=== PATIENT | female | born 2000 | race American Indian/Alaskan Native ===

== ENCOUNTER 2020-05-15 09:19 | Emergency (ER) | payer OTHER ==
[2020-05-15 09:32] VITALS: BP 144/76
--- NOTE | 2020-05-15 09:59 | Emergency Department Report ---
ED Female HPI - General Chief complaint: Abdominal Pain Stated complaint: 16 WKS LOWER STOMACH PAIN Time Seen by Provider: 05/15/20 09:59 Source: patient Mode of arrival: Ambulatory Limitations: No Limitations - History of Present Illness Initial comments: 20-year-old female with no significant past medical history presents to the ER today complaint of sharp intermittent lower abdominal pain. She states that she woke up with the pain this morning. She states that she has had normal regular white discharge, denies any vaginal bleeding or UTI symptoms. She denies any fever or chills. She states that her last menstrual cycle was January 20. She last had an ultrasound at 12 weeks which showed a normal IUP. She is G2, P0 Ab1. Her [facility]. She states that when the pain started this morning she called her [facility] [employer] [facility] and it was recommended that she come to the ER for evaluation. She states that she is concerned because she has had a miscarriage in the past. MD Complaint: pelvic pain, other (lower abd pain) - Related Data Allergies Allergy/AdvReac Type Severity Reaction Status Date / Time FOOD ALLERGIES Allergy Unknown Uncoded 05/15/20 09:28 ED Review of Systems ROS: Stated complaint: 16 WKS LOWER STOMACH PAIN Other details as noted in HPI Comment: All other systems reviewed and negative Constitutional: denies: chills, fever Respiratory: denies: cough, shortness of breath, wheezing Cardiovascular: denies: chest pain, palpitations Gastrointestinal: abdominal pain. denies: nausea, vomiting, diarrhea, constipation, hematemesis, melena, hematochezia Genitourinary: discharge (Her normal regular discharge). denies: urgency, dysuria, frequency, hematuria Skin: denies: rash, lesions Neurological: denies: headache, weakness, paresthesias Psychiatric: denies: anxiety, depression ED Past Medical Hx - Past Medical History Previous Medical History?: Yes Additional medical history: MISCARRIAGE - Surgical History Past Surgical History?: No - Social History Smoking Status: Never Smoker Substance Use Type: None ED Physical Exam - General Limitations: No Limitations General appearance: alert, in no apparent distress - Head Head exam: Present: atraumatic, normal inspection - Eye Eye exam: Present: normal appearance, PERRL, EOMI Pupils: Present: normal accommodation - Respiratory Respiratory exam: Present: normal lung sounds bilaterally. Absent: respiratory distress - Cardiovascular Cardiovascular Exam: Present: regular rate, normal rhythm, normal heart sounds - GI/Abdominal GI/Abdominal exam: Present: soft, tenderness (Patient has mild tenderness to palpation in the suprapubic and right lower quadrant without guarding or rebound. No abdominal rigidity or distention noted.). Absent: distended - External exam: Present: normal external exam Speculum exam: Present: vaginal discharge (Mild white-yellowish discharge). Absent: erythema, vaginal bleeding, foreign body Bi-manual exam: Present: adnexal tenderness (Mild bilaterally). Absent: cervical motion tendernes, adnexal mass, uterine tenderness - Back Exam Back exam: Present: full ROM - Neurological Exam Neurological exam: Present: alert, oriented X3, CN II-XII intact, normal gait - Psychiatric Psychiatric exam: Present: normal affect, normal mood - Skin Skin exam: Present: intact ED Course Vital Signs 05/15/20 05/15/20 09:29 11:21 Temperature 98.1 F Pulse Rate 94 H Respiratory 19 18 Rate Blood Pressure 144/76 O2 Sat by Pulse 99 Oximetry ED Medical Decision Making - Lab Data Result diagrams: 05/15/20 10:09 05/15/20 10:09 - Radiology Data Findings [facility] [address] [place] [address] Ultrasound Report Signed Patient: VALE DAVILA MR#: [id number] : 2000 Acct:[id number] Age/Sex: 20 / F ADM Date: 05/15/20 Loc: ED Attending Dr: Ordering Physician: IGNACIO COLEMAN Date of Service: 05/15/20 Procedure(s): US OB >= 14 weeks Fetus Accession Number(s): [id number] cc: IGNACIO COLEMAN ULTRASOUND OBSTETRIC REASON FOR EXAM: lower abd pain; 16 weeks preg TECHNIQUE: Transabdominal and transvaginal ultrasound was performed to evaluate a second trimester . COMPARISON: None available. FINDINGS: FINDINGS: Single live intrauterine in cephalic presentation. Posterior placenta, which is free of the os. Amniotic fluid volume is adequate. MEASUREMENTS: - Biparietal Diameter = 2.6 cm = 14 weeks 4 days - Head Circumference = 9.5 cm = 14 weeks 2 days - Abdominal Circumference = 8.3 cm = 14 weeks 5 days - Femur Length = 1.2 cm = 13 weeks 4 days - Heart Rate (beats per minute): 154 No free fluid in the cul-de-sac. IMPRESSION: Single live intrauterine with gestational age of 14 weeks 2 days by ultrasound. Recommend clinical screening and ultrasound follow-up to screen for anomalies. Signer Name: Anne-Marie Avery MD Signed: 05/15/2020 11:38 AM Workstation Name: [id number] Transcribed By: JOSELINE Dictated By: ANNE-MARIE AVERY MD Electronically Authenticated By: ANNE-MARIE AVERY MD Signed Date/Time: 05/15/20 1138 - Medical Decision Making 1259: Upon reviewing ultrasound results and lab results with patient, she then started to request STD testing. Patient states that she had recent sexual intercourse with a janet who she is been seen off and on. This is not her current child's father. She states that during sexual intercourse the condom ruptured and pain started right after. She is concerned that the pain could be related to an STD. Recommend to patient that she follows up with [employer] for STD testing, but she states that she is scheduled to see them in a month and they will not see her sooner. She also states that the Tylenol did not help with her pain. Repeat abdominal exam showed mild tenderness in the right lower quadrant, but no guarding or rebound and no McBurney's point tenderness, distention, or rigidity. Pelvic exam was done, showed tenderness to the adnexa bilaterally without any mass. No bleeding. Cervical os closed. No CMT. Mild white-yellowish discharge. Wet prep/GC pending. IM Rocephin and Zithromax ordered. 1431 Wet prep unremarkable. GC pending. Reviewed all results with patient including her wet prep. Work-up today unremarkable. No further work-up indicated at this time. Recommend that she follow-up with her [employer]. Continue taking Tylenol as needed for pain. Return to the ER if anything worsens or changes. Critical care attestation.: If time is entered above; I have spent that time in minutes in the direct care of this critically ill patient, excluding procedure time. ED Disposition Clinical Impression: Pelvic pain during , Concern about STD in female without diagnosis Disposition: - TO HOME OR SELFCARE Is pt being admited?: No Does the pt Need Aspirin: No Condition: Stable Instructions: Pelvic Pain, Female, [id number], and Sexually Transmitted Infections, Abdominal Pain (ED) Additional Instructions: I recommend that you take Tylenol as needed to help with the pain. Follow-up with the [employer] in the next 1 to 2 days. Return to the ER if your symptoms changes or worsens in any way. Referrals: PRIMARY CARE, [Primary Care Provider] - 3-5 Days Time of Disposition: 12:34
[2020-05-15] MEDS ORDERED: ACETAMINOPHEN 325 MG TAB PO ONE (10:00)
[2020-05-15 10:35] LABS: Basophils % (Auto) 0.2 % (0.0-1.8); Eosinophils # (Auto) 0.1 K/mm3 (0.0-0.4); Eosinophils % (Auto) 1.4 % (0.0-4.3); Hematocrit 37.4 % (30.3-42.9); Hemoglobin 12.5 gm/dl (10.1-14.3); Lymphocytes # (Auto) 2.5 K/mm3 (1.2-5.4); Mean Corpuscular HGB Conc 33 % (30-34); Mean Corpuscular Volume 90 fl (79-97); Monocytes # (Auto) 0.5 K/mm3 (0.0-0.8); Monocytes % (Auto) 5.3 % (0.0-7.3); Platelet Count 412 K/mm3 (140-440); Red Blood Count 4.15 M/mm3 (3.65-5.03); Red Cell Distribution Width 13.3 % (13.2-15.2)
[2020-05-15 10:40] LABS: Alanine Aminotransferase 11 units/L (7-56); Albumin 3.9 g/dL (3.9-5); Blood Urea Nitrogen 5 mg/dL (7-17); Calcium 9.3 mg/dL (8.4-10.2); Hemolysis Index 4
[2020-05-15 10:41] LABS: BUN/Creatinine Ratio 13
[2020-05-15 10:45] LABS: Amorphous Crystals,Urine Few; Bilirubin,Urine NEG (Negative); Blood,Urine NEG (Negative); Color,Urine Yellow (Yellow); Mucus,Urine FEW /HPF; Protein,Urine <15 mg/dL mg/dL (Negative); Urobilinogen,Urine < 2.0 mg/dL (<2.0); WBC,Urine < 1.0 /HPF (0.0-6.0)
--- NOTE | 2020-05-15 11:43 | Ultrasound Report ---
ULTRASOUND OBSTETRIC REASON FOR EXAM: lower abd pain; 16 weeks preg TECHNIQUE: Transabdominal and transvaginal ultrasound was performed to evaluate a second trimester pr egnancy. COMPARISON: None available. FINDINGS: FINDINGS: Single live intrauterine in cephalic presentation. Posterior placenta, which is free of the os. Amniotic fluid volume is adequate. MEASUREMENTS: - Biparietal Diameter = 2.6 cm = 14 weeks 4 days - Head Circumference = 9.5 cm = 14 weeks 2 days - Abdominal Circumference = 8.3 cm = 14 weeks 5 days - Femur Length = 1.2 cm = 13 weeks 4 days - Heart Rate (beats per minute): 154 No free fluid in the cul-de-sac. IMPRESSION: Single live intrauterine with gestational age of 14 weeks 2 days by ultrasound. Recommend c linical screening and ultrasound follow-up to screen for anomalies. Signer Name: Ke Avery MD Signed: 05/15/2020 11:38 AM Workstation Name: [id number]
[2020-05-15] MEDS ORDERED: LIDOCAINE-MPF (1%) 10 MG/1 ML VIAL 5 ML INFILTRATI ONE (12:42)
[2020-05-15] MEDS ORDERED: AZITHROMYCIN 250 MG TAB PO ONE (12:42)
== END 2020-05-15 14:54 | disposition home or self-care (01) ==
LOC: ED 09:19
DX: O26.892 Other specified pregnancy related conditions, second trimester (principal); R10.2 Pelvic and perineal pain; Z3A.16 16 weeks gestation of pregnancy; Z91.018 Allergy to other foods
CPT/HCPCS: 36415; 76805; 80053; 81001; 84702; 85025; 87210; 87591; 96372; 99284; J0696

== ENCOUNTER 2020-08-15 22:36 | Outpatient (CLI) | payer OTHER ==
[2020-08-15 23:26] LABS: Bilirubin,Urine NEG (Negative); Blood,Urine NEG (Negative); Color,Urine Yellow (Yellow); Mucus,Urine FEW /HPF; Urobilinogen,Urine < 2.0 mg/dL (<2.0)
[2020-08-15] MEDS ORDERED: LACTATED RINGERS 1,000 ML IV ONE (23:31)
[2020-08-15] MEDS ORDERED: LACTATED RINGERS 1,000 ML ONE (23:42)
[2020-08-15] MEDS ORDERED: ceFAZolin/Water 2 GM/20 ML 2 GM/20 ML SYRINGE IV ONE (23:44)
[2020-08-15] MEDS ORDERED: LACTATED RINGERS 1000 ML IV SOLN ONE (23:46)
[2020-08-16 00:18] VITALS: BP 148/79
== END 2020-08-16 00:44 | disposition home or self-care (01) ==
LOC: TRG 22:36 → APU 22:46 → TRG 08-16 00:44
PROVIDERS: ATTEND Obstetrics & Gynecology
DX: O26.892 Other specified pregnancy related conditions, second trimester (principal); M54.9 Dorsalgia, unspecified; R10.9 Unspecified abdominal pain; Z3A.27 27 weeks gestation of pregnancy
CPT/HCPCS: 59025; 81001; 96361; 96374; J0690; J7120; 96360; 96365

== ENCOUNTER 2020-09-01 13:59 | Outpatient (CLI) | payer OTHER ==
[2020-09-01] MEDS ORDERED: LACTATED RINGERS 1,000 ML IV SCH (15:30)
[2020-09-01 15:33] VITALS: BP 131/60
[2020-09-01] MEDS ORDERED: ACETAMINOPHEN 325 MG TAB PO ONE (16:27)
[2020-09-01] MEDS ORDERED: ONDANSETRON 4 MG/2 ML INJ IV ONE (16:27)
--- NOTE | 2020-09-01 18:19 | Ultrasound Report ---
OB ultrasound biophysical profile INDICATION: Decreased movement FINDINGS: breathing movements score 2 movement score 2 posture and tone score 2 Qualitative amniotic fluid score 2 FLORENTINO 6.2 cm. IMPRESSION: Normal biophysical profile. heart rate 159 bpm. Signer Name: Karthik Perla MD Signed: 09/01/2020 6:14 PM Workstation Name: [email or web address]
== END 2020-09-01 16:15 | disposition home or self-care (01) ==
LOC: TRG 13:59 → APU 14:02 → TRG 16:15
DX: O36.8130 Decreased fetal movements, third trimester, not applicable or unspecified (principal); O21.2 Late vomiting of pregnancy; O26.893 Other specified pregnancy related conditions, third trimester; R51.9 Headache, unspecified; Z3A.30 30 weeks gestation of pregnancy
CPT/HCPCS: 76819; 96361; 96365; J2405; J7120

== ENCOUNTER 2020-09-12 22:11 | Outpatient (CLI) | payer OTHER ==
[2020-09-12] MEDS ORDERED: LACTATED RINGERS 500 ML IV ONE (22:25)
[2020-09-12 22:34] VITALS: BP 136/68
[2020-09-12 22:49] LABS: Bacteria,Urine 1+ /HPF (Negative); Bilirubin,Urine NEG (Negative); Blood,Urine NEG (Negative); Color,Urine Yellow (Yellow); Mucus,Urine FEW /HPF; Protein,Urine <15 mg/dL mg/dL (Negative)
[2020-09-12] MEDS: LACTATED RINGERS 1000 ML IV SOLN IV SCH (23:25)
[2020-09-13] MEDS ORDERED: ACETAMINOPHEN 500 MG TAB PO ONE (00:04)
--- NOTE | 2020-09-13 00:20 | Ultrasound Report ---
BIOPHYSICAL PROFILE heart rate was measured at 142 bpm. breathing movements: 2/2 movements: 2/2 posture and tone tone: 2/2 Qualitative amniotic fluid volume: 2/2 Total score: 8/8, within normal limits Signer Name: Casper Pace MD Signed: 09/13/2020 12:16 AM Workstation Name: [email or web address]
[2020-09-13] MEDS: LACTATED RINGERS 1000 ML IV SOLN IV SCH (00:30)
[2020-09-13] MEDS ORDERED: ACETAMINOPHEN W/CODEINE 300-30 MG TAB PO ONE (01:00)
== END 2020-09-13 01:18 | disposition home or self-care (01) ==
LOC: TRG 22:11 → APU 22:18 → TRG 09-13 01:18
PROVIDERS: ATTEND Obstetrics & Gynecology
DX: O26.893 Other specified pregnancy related conditions, third trimester (principal); R10.30 Lower abdominal pain, unspecified; R10.2 Pelvic and perineal pain; M54.9 Dorsalgia, unspecified; Z3A.31 31 weeks gestation of pregnancy
CPT/HCPCS: 59025; 76819; 81001; 87086; 96361; 96365; J0690; J7120; 96360

== ENCOUNTER 2020-09-25 13:02 | Outpatient (CLI) | payer OTHER ==
[2020-09-25] MEDS ORDERED: LACTATED RINGERS 1,000 ML IV ONE (13:25)
[2020-09-25 14:47] VITALS: BP 142/71
--- NOTE | 2020-09-25 15:00 | Ultrasound Report ---
US OB BPP WO NON-STRESS US OB LIMITED INDICATION / CLINICAL INFORMATION: well being. COMPARISON: 09/12/2020 FINDINGS: breathing movement = 2 Gross body movement = 2 tone = 2 Qualitative amniotic fluid volume = 0 Total biophysical score = 11/27 Amniotic fluid index is 6.6 cm. (Previously 6.2 cm) Presentation is Cephalic. heart rate is 145 beats per minute. IMPRESSION: biophysical profile = 09/27 Amniotic fluid index is mildly decreased at 6.6 cm (previously 6.2 cm) Signer Name: Royal Fuentes MD Signed: 09/25/2020 2:56 PM Workstation Name: [id number]
== END 2020-09-25 14:54 | disposition home or self-care (01) ==
LOC: TRG 13:02 → APU 13:06 → TRG 14:54
PROVIDERS: ATTEND Obstetrics & Gynecology
DX: O36.8130 Decreased fetal movements, third trimester, not applicable or unspecified (principal); Z3A.33 33 weeks gestation of pregnancy
CPT/HCPCS: 59025; 76815; 76819

== ENCOUNTER 2020-10-13 00:11 | Outpatient (CLI) | payer OTHER ==
[2020-10-13 01:06] LABS: Mucus,Urine FEW /HPF
[2020-10-13 01:29] LABS: Color,Urine Yellow (Yellow)
[2020-10-13 01:30] LABS: Ictotest,Urine Negative (Negative); Protein,Urine <15 mg/dL mg/dL (Negative); Urobilinogen,Urine < 2.0 mg/dL (<2.0)
--- NOTE | 2020-10-13 02:25 | Ultrasound Report ---
Biophysical profile INDICATION: well-being FINDINGS: Biophysical profile total score 8 out of 8. heart rate 156. IMPRESSION: Normal biophysical profile Limited OB ultrasound INDICATION: well-being FINDINGS: FLORNETINO measures 11.2 cm. Live intrauterine in cephalic position. heart rate is 1 56 bpm. IMPRESSION: Live intrauterine Signer Name: Karthik Perla MD Signed: 10/13/2020 2:20 AM Workstation Name: [email or web address]
--- NOTE | 2020-10-13 02:25 | Ultrasound Report ---
Biophysical profile INDICATION: well-being FINDINGS: Biophysical profile total score 8 out of 8. heart rate 156. IMPRESSION: Normal biophysical profile Limited OB ultrasound INDICATION: well-being FINDINGS: FLORENTINO measures 11.2 cm. Live intrauterine in cephalic position. heart rate is 1 56 bpm. IMPRESSION: Live intrauterine Signer Name: Karthik Perla MD Signed: 10/13/2020 2:20 AM Workstation Name: [id number]
== END 2020-10-13 02:00 | disposition home or self-care (01) ==
LOC: TRG 00:11 → APU 00:39 → TRG 02:00
PROVIDERS: ATTEND Obstetrics & Gynecology
DX: Z34.93 Encounter for supervision of normal pregnancy, unspecified, third trimester (principal); Z3A.36 36 weeks gestation of pregnancy
CPT/HCPCS: 76815; 76819; 81001

== ENCOUNTER 2020-10-18 16:19 | Outpatient (CLI) | payer OTHER ==
[2020-10-18] MEDS ORDERED: LACTATED RINGERS 1,000 ML IV ONE (16:55)
[2020-10-18 17:17] LABS: Bacteria,Urine 2+ /HPF (Negative); Bilirubin,Urine NEG (Negative); Blood,Urine NEG (Negative); Color,Urine Yellow (Yellow); Protein,Urine <15 mg/dL mg/dL (Negative); Urobilinogen,Urine < 2.0 mg/dL (<2.0)
[2020-10-18 17:52] LABS: Hematocrit 34.3 % (30.3-42.9); Hemoglobin 11.4 gm/dl (10.1-14.3); Mean Corpuscular HGB Conc 33 % (30-34); Mean Corpuscular Volume 82 fl (79-97); Platelet Count 489 K/mm3 (140-440); Red Blood Count 4.21 M/mm3 (3.65-5.03); Red Cell Distribution Width 15.5 % (13.2-15.2)
[2020-10-18 18:18] LABS: Alanine Aminotransferase 12 units/L (7-56); Uric Acid 3.9 mg/dL (3.5-7.6)
[2020-10-18 19:23] VITALS: BP 138/78
--- NOTE | 2020-10-18 20:03 | Ultrasound Report ---
US OB BPP wo non-stress, US OB limited INDICATION / CLINICAL INFORMATION: decel in office. COMPARISON: 10/13/2020 FINDINGS: Single live fetus is seen in cephalic presentation. FLORENTINO is normal at 9.0. heart rate is 141. BP P is 6/8 with a 0 for breathing movements IMPRESSION: Single live fetus in cephalic presentation with heart rate 141. BPP is 6/8 with a 0 for b reathing movements Signer Name: Jalen Doan MD FACR Signed: 10/18/2020 7:58 PM Workstation Name: [id number]
== END 2020-10-18 19:58 | disposition home or self-care (01) ==
LOC: TRG 16:19 → APU 16:21 → TRG 19:58
DX: O36.8130 Decreased fetal movements, third trimester, not applicable or unspecified (principal); O10.913 Unspecified pre-existing hypertension complicating pregnancy, third trimester; O47.1 False labor at or after 37 completed weeks of gestation; Z3A.37 37 weeks gestation of pregnancy
CPT/HCPCS: 36415; 59025; 76815; 76819; 81001; 82565; 83615; 84450; 84460; 84550; 85027; 86850; 86900; 86901; 96360

== ENCOUNTER 2020-10-24 01:52 | Inpatient (IN) | payer OTHER ==
[2020-10-24] MEDS ORDERED: ONDANSETRON 4 MG ODT TAB PO ONE (02:36)
[2020-10-24 03:00] LABS: Hematocrit 33.2 % (30.3-42.9); Hemoglobin 10.8 gm/dl (10.1-14.3); Mean Corpuscular HGB Conc 33 % (30-34); Mean Corpuscular Volume 82 fl (79-97); Platelet Count 509 K/mm3 (140-440); Red Blood Count 4.07 M/mm3 (3.65-5.03); Red Cell Distribution Width 15.8 % (13.2-15.2)
[2020-10-24 03:07] LABS: Bacteria,Urine 1+ /HPF (Negative); Bilirubin,Urine NEG (Negative); Blood,Urine NEG (Negative); Color,Urine Straw (Yellow); Protein,Urine <15 mg/dL mg/dL (Negative); Urobilinogen,Urine < 2.0 mg/dL (<2.0)
[2020-10-24 03:22] LABS: Uric Acid 4.3 mg/dL (3.5-7.6)
[2020-10-24 03:23] LABS: Alanine Aminotransferase 11 units/L (7-56); Albumin 3.6 g/dL (3.9-5); Blood Urea Nitrogen 8 mg/dL (7-17); Calcium 9.5 mg/dL (8.4-10.2); Hemolysis Index 2
[2020-10-24 03:36] LABS: BUN/Creatinine Ratio 16
[2020-10-24] MEDS ORDERED: OXYTOCIN 10 UNIT/1 ML INJ IM PRN (04:11)
[2020-10-24] MEDS ORDERED: DINOPROSTONE 10 MG VAG SUPP VG ONE (04:11)
[2020-10-24] MEDS ORDERED: TERBUTALINE 1 MG/1 ML INJ SUB-Q PRN (04:11)
[2020-10-24] MEDS ORDERED: LIDOCAINE (2%) 20 MG/1 ML VIAL 20 ML MDV INFILTRATI ONE (04:11)
[2020-10-24] MEDS ORDERED: CARBOPROST TROMETHAMINE 250 MCG/1 ML INJ IM PRN (04:11)
[2020-10-24] MEDS ORDERED: fentaNYL 100 MCG/2 ML INJ IV PRN (04:11)
[2020-10-24] MEDS ORDERED: LOPERAMIDE 2 MG CAP PO PRN (04:11)
[2020-10-24] MEDS ORDERED: MINERAL OIL 30 ML ORAL LIQD PO PRN (04:11)
[2020-10-24] MEDS ORDERED: miSOPROStol 200 MCG TAB PR PRN (04:11)
[2020-10-24] MEDS ORDERED: ePHEDrine SULFATE 50 MG/1 ML INJ IV PRN (04:11)
--- NOTE | 2020-10-24 04:18 | History and Physical Report ---
History of Present Illness Date of examination: 10/24/20 Date of admission: 10/24/20 Chief complaint: Elevated blood pressure. History of present illness: 20 year old presents to L&D with elevated blood pressures. Patient received care at [facility] and records are available. LMP 01/21/2020. EDC 11/08/2020. significant for the following: obesity, gestational hypertension (on LDA). labs are as follows: A+, antibody screen negative, rubella immune, hepatitis B surface antigen negative, RPR nonreactive, HIV negative, gonorrhea negative, chlamydia negative, trichomonas negative, 1 hour sugar test 97, GBS negative, OSB negative. Past History Past Medical History: other (obesity) Past Surgical History: no surgical history [facility] [facility] History: abnormal PAP smear (history of ASCUS pap, negative HPV). denies: chlamydia, gonorrhea, hepatitis B, hepatitis C, herpes, HIV, syphilis, trichomonas Family/Genetic History: none Social history: lives with family, full code. denies: smoking, alcohol abuse, prescription drug abuse, IV drug use - Obstetrical History Expected Date of Delivery: 11/08/20 Actual Gestation: 37 Week(s) 6 Day(s) : 3 Para: 0 Hx # Term Pregnancies: 0 Number of Pregnancies: 0 Spontaneous Abortions: 1 Induced : 1 Number of Living Children: 0 Medications and Allergies Allergies Allergy/AdvReac Type Severity Reaction Status Date / Time FOOD ALLERGIES Allergy Unknown Uncoded 05/15/20 09:28 Home Medications Medication Instructions Recorded Confirmed Last Taken Type Nitrofurantoin [place]/M-Cryst 100 mg PO Q12HR 7 Days #14 capsule 09/13/20 Unknown Rx [Macrobid CAP] Sulfamethoxazole/Trimethoprim 1 each PO BID 7 Days #14 tablet 09/13/20 Unknown Rx [Bactrim DS TAB] Active Meds: Active Medications Carboprost Tromethamine (Carboprost Tromethamine 250 Mcg/1 Ml Inj) 250 mcg IM ONCE PRN PRN Reason: Uterine Bleeding Dinoprostone (Dinoprostone 10 Mg Vag Supp) 10 mg VG ONCE ONE Stop: 10/24/20 04:12 Ephedrine Sulfate (Ephedrine Sulfate 50 Mg/1 Ml Inj) 10 mg IV Q2M PRN PRN Reason: Hypotension Fentanyl (Fentanyl 100 Mcg/2 Ml Inj) 100 mcg IV Q2H PRN PRN Reason: Pain,Severe (7-10) LABOR PAIN Lactated Ringer's (Lactated Ringers) 1,000 mls @ 125 mls/hr IV DIRECT MARGARITA Oxytocin/Sodium Chloride (Pitocin/Ns 30 Unit/500ml) 30 units in 500 mls @ 40 mls/hr IV TITR MARGARITA; Protocol Lidocaine (Lidocaine (2%) 20 Mg/1 Ml Vial 20 Ml Mdv) 20 ml INFILTRATI ONCE ONE Stop: 10/24/20 04:12 Loperamide HCl (Loperamide 2 Mg Cap) 2 mg PO ONCE PRN PRN Reason: give with Hemabate Mineral Oil (Mineral Oil 30 Ml Oral Liqd) 30 ml PO QHS PRN PRN Reason: Constipation Misoprostol (Misoprostol 200 Mcg Tab) 800 mcg HI ONCE PRN PRN Reason: Uterine Bleeding Oxytocin (Oxytocin 10 Unit/1 Ml Inj) 10 unit IM ONCE PRN PRN Reason: Uterine Bleeding Terbutaline Sulfate (Terbutaline 1 Mg/1 Ml Inj) 0.25 mg SUB-Q ONCE PRN PRN Reason: Hyperstimulation/Hypertonicity Review of Systems All systems: negative (nausea (resolved)) - Vital Signs Vital signs: Vital Signs Temp Pulse Resp BP 98.6 F 115 H 18 143/87 10/24/20 02:09 10/24/20 02:09 10/24/20 02:09 10/24/20 02:09 Temp Pulse Resp BP Pulse Ox 98.6 F 90 18 137/69 10/24/20 02:09 10/24/20 03:26 10/24/20 02:09 10/24/20 03:26 - Physical Exam Abdomen: Positive: normal appearance, soft. Negative: distention, tenderness, guarding, rigidity Genitourinary (Female): Positive: normal external genitalia, normal perenium. Negative: perineal/vulvar lesions Vagina: Positive: normal moisture Uterus: Positive: enlarged. Negative: tender Anus/Rectum: Positive: normal perianal skin Extremities: Positive: edema. Negative: tenderness - Obstetrical FHR: category 1 Uterine Contraction Monitor Mode: External Cervical Dilatation: 0.5 (Exam by RN in triage) Cervical Effacement Percentage: 0 (cephalic presentation confirmed with bedside US) station: -2 Uterine Contraction Pattern: Absent Results Result Diagrams: 10/24/20 02:40 10/24/20 02:40 Abnormal lab results 10/24/20 10/24/20 Range/Units 02:40 02:40 WBC 12.2 H (4.5-11.0) K/mm3 MCH 27 L (28-32) pg RDW 15.8 H (13.2-15.2) % Plt Count 509 H (140-440) K/mm3 Sodium 132 L (137-145) mmol/L Carbon Dioxide 20 L (22-30) mmol/L Creatinine 0.5 L (0.6-1.2) mg/dL Alkaline Phosphatase 154 H (35-129) units/L Total Protein 6.1 L (6.3-8.2) g/dL Albumin 3.6 L (3.9-5) g/dL All other labs normal. Assessment and Plan A: at 37 weeks, 6 days gestation. Gestational hypertension. Obesity. P: Admit. Continuous EFM. Preeclamptic labs and 24 hour urine. Cervidil cervical ripening. Consulted with Dr. Topete re: this patient. Dr. Topete states she agrees with admission and IOL.
[2020-10-24] MEDS ORDERED: OXYTOCIN DRIP 30 UNITS/500 ML BAG IV SCH (05:00)
[2020-10-24] MEDS: LACTATED RINGERS 1,000 ML IV SCH ×2 (05:36→13:22)
--- NOTE | 2020-10-24 10:34 | Progress Note ---
Subjective - Subjective Date of service: 10/24/20 Interval history: FHT Category [address] Maternal/ well being reassuring overall Nilsa Topete MD Objective - Vital Signs Vital Signs: Vital Signs - 12hr 10/24/20 10/24/20 10/24/20 02:09 02:41 02:56 Temperature 98.6 F Pulse Rate 115 H 101 H 98 H Respiratory 18 Rate Blood Pressure 143/87 148/72 168/75 Blood Pressure [Left] O2 Sat by Pulse Oximetry 10/24/20 10/24/20 10/24/20 03:11 03:26 04:28 Temperature Pulse Rate 90 90 98 H Respiratory Rate Blood Pressure 134/64 137/69 Blood Pressure [Left] O2 Sat by Pulse 99 Oximetry 10/24/20 10/24/20 10/24/20 04:33 04:36 04:38 Temperature 98.3 F Pulse Rate 93 H 101 H Respiratory Rate Blood Pressure Blood Pressure 155/94 [Left] O2 Sat by Pulse 99 99 Oximetry 10/24/20 10/24/20 10/24/20 04:58 04:59 05:04 Temperature Pulse Rate 93 H 96 H 101 H Respiratory Rate Blood Pressure 137/79 Blood Pressure [Left] O2 Sat by Pulse 99 99 Oximetry 10/24/20 10/24/20 10/24/20 05:09 05:11 05:14 Temperature Pulse Rate 92 H 90 91 H Respiratory Rate Blood Pressure 142/73 Blood Pressure [Left] O2 Sat by Pulse 99 99 Oximetry 10/24/20 10/24/20 10/24/20 05:19 05:24 05:26 Temperature Pulse Rate 90 92 H 82 Respiratory Rate Blood Pressure 138/78 Blood Pressure [Left] O2 Sat by Pulse 99 99 Oximetry 10/24/20 10/24/20 10/24/20 05:29 05:34 05:39 Temperature Pulse Rate 88 86 92 H Respiratory Rate Blood Pressure Blood Pressure [Left] O2 Sat by Pulse 99 98 98 Oximetry 10/24/20 10/24/20 10/24/20 05:41 05:44 05:49 Temperature Pulse Rate 85 93 H 90 Respiratory Rate Blood Pressure 131/67 Blood Pressure [Left] O2 Sat by Pulse 98 99 Oximetry 10/24/20 10/24/20 10/24/20 05:54 05:55 05:59 Temperature Pulse Rate 86 95 H 85 Respiratory Rate Blood Pressure 123/59 Blood Pressure [Left] O2 Sat by Pulse 99 99 Oximetry 10/24/20 10/24/20 10/24/20 06:04 06:09 06:12 Temperature Pulse Rate 103 H 85 88 Respiratory Rate Blood Pressure 135/69 Blood Pressure [Left] O2 Sat by Pulse 100 99 Oximetry 10/24/20 10/24/20 10/24/20 06:14 06:19 06:24 Temperature Pulse Rate 90 95 H 99 H Respiratory Rate Blood Pressure Blood Pressure [Left] O2 Sat by Pulse 97 99 100 Oximetry 10/24/20 10/24/20 10/24/20 06:26 06:29 06:34 Temperature Pulse Rate 85 83 84 Respiratory Rate Blood Pressure 139/71 Blood Pressure [Left] O2 Sat by Pulse 99 100 Oximetry 10/24/20 10/24/20 10/24/20 06:39 06:42 06:44 Temperature Pulse Rate 92 H 83 86 Respiratory Rate Blood Pressure 117/56 Blood Pressure [Left] O2 Sat by Pulse 100 99 Oximetry 10/24/20 10/24/20 10/24/20 07:09 07:14 07:19 Temperature Pulse Rate 81 86 89 Respiratory Rate Blood Pressure 130/60 Blood Pressure [Left] O2 Sat by Pulse 98 99 99 Oximetry 10/24/20 10/24/20 10/24/20 07:24 07:26 07:27 Temperature 98.1 F Pulse Rate 81 88 Respiratory Rate Blood Pressure 136/62 Blood Pressure [Left] O2 Sat by Pulse 99 Oximetry 10/24/20 10/24/20 10/24/20 07:29 07:34 07:39 Temperature Pulse Rate 89 88 78 Respiratory Rate Blood Pressure Blood Pressure [Left] O2 Sat by Pulse 99 99 100 Oximetry 10/24/20 10/24/20 10/24/20 07:40 07:44 07:49 Temperature Pulse Rate 80 96 H 83 Respiratory Rate Blood Pressure 132/60 Blood Pressure [Left] O2 Sat by Pulse 99 100 Oximetry 10/24/20 10/24/20 10/24/20 07:54 07:55 07:59 Temperature Pulse Rate 86 83 81 Respiratory Rate Blood Pressure 115/57 Blood Pressure [Left] O2 Sat by Pulse 100 100 Oximetry 10/24/20 10/24/20 10/24/20 08:04 08:08 08:10 Temperature Pulse Rate 92 H 83 78 Respiratory Rate Blood Pressure 116/57 Blood Pressure [Left] O2 Sat by Pulse 100 99 Oximetry 10/24/20 10/24/20 10/24/20 08:14 08:19 08:24 Temperature Pulse Rate 80 85 82 Respiratory Rate Blood Pressure Blood Pressure [Left] O2 Sat by Pulse 100 99 98 Oximetry 10/24/20 10/24/20 10/24/20 08:25 08:28 08:34 Temperature Pulse Rate 78 84 85 Respiratory Rate Blood Pressure 114/59 Blood Pressure [Left] O2 Sat by Pulse 98 98 Oximetry 10/24/20 10/24/20 10/24/20 08:39 08:40 08:44 Temperature Pulse Rate 82 82 116 H Respiratory Rate Blood Pressure 110/56 Blood Pressure [Left] O2 Sat by Pulse 98 97 Oximetry 10/24/20 10/24/20 10/24/20 08:49 08:54 08:55 Temperature Pulse Rate 83 75 96 H Respiratory Rate Blood Pressure 106/50 Blood Pressure [Left] O2 Sat by Pulse 99 97 Oximetry 10/24/20 10/24/20 10/24/20 08:57 08:59 09:04 Temperature Pulse Rate 98 H 82 80 Respiratory Rate Blood Pressure Blood Pressure [Left] O2 Sat by Pulse 88 97 98 Oximetry 10/24/20 10/24/20 10/24/20 09:09 09:11 09:14 Temperature Pulse Rate 85 80 83 Respiratory Rate Blood Pressure 141/70 Blood Pressure [Left] O2 Sat by Pulse 98 98 Oximetry 10/24/20 10/24/20 10/24/20 09:19 09:24 09:26 Temperature Pulse Rate 83 85 82 Respiratory Rate Blood Pressure 129/58 Blood Pressure [Left] O2 Sat by Pulse 98 99 Oximetry 10/24/20 10/24/20 10/24/20 09:29 09:34 09:39 Temperature Pulse Rate 83 85 84 Respiratory Rate Blood Pressure Blood Pressure [Left] O2 Sat by Pulse 99 99 99 Oximetry 10/24/20 10/24/20 10/24/20 09:40 09:44 09:49 Temperature Pulse Rate 81 82 83 Respiratory Rate Blood Pressure 128/59 Blood Pressure [Left] O2 Sat by Pulse 99 99 Oximetry 10/24/20 10/24/20 10/24/20 09:54 09:56 10:11 Temperature Pulse Rate 83 95 H 86 Respiratory Rate Blood Pressure 145/72 111/55 Blood Pressure [Left] O2 Sat by Pulse 98 Oximetry 10/24/20 10:25 Temperature Pulse Rate 83 Respiratory Rate Blood Pressure 103/53 Blood Pressure [Left] O2 Sat by Pulse Oximetry - Labs Labs: Abnormal Labs 10/24/20 10/24/20 02:40 02:40 WBC 12.2 H MCH 27 L RDW 15.8 H Plt Count 509 H Sodium 132 L Carbon Dioxide 20 L Creatinine 0.5 L Alkaline Phosphatase 154 H Total Protein 6.1 L Albumin 3.6 L Laboratory Results - last 24 hr 10/24/20 10/24/20 10/24/20 02:40 02:40 02:40 WBC 12.2 H RBC 4.07 Hgb 10.8 Hct 33.2 MCV 82 MCH 27 L MCHC 33 RDW 15.8 H Plt Count 509 H Sodium 132 L Potassium 4.5 Chloride 100.4 Carbon Dioxide 20 L Anion Gap 16 BUN 8 Creatinine 0.5 L Estimated GFR > 60 BUN/Creatinine Ratio 16 Glucose 98 Uric Acid Calcium 9.5 Total Bilirubin < 0.20 AST 13 ALT 11 Alkaline Phosphatase 154 H Lactate Dehydrogenase 173 Total Protein 6.1 L Albumin 3.6 L Albumin/Globulin Ratio 1.4 Urine Color Straw Urine Turbidity Clear Urine pH 7.0 Ur Specific [place] 1.009 Urine Protein <15 mg/dl Urine Glucose (UA) Neg Urine Ketones Neg Urine Blood Neg Urine Nitrite Neg Urine Bilirubin Neg Urine Urobilinogen < 2.0 Ur Leukocyte Esterase Neg Urine WBC (Auto) 1.0 Urine RBC (Auto) 2.0 U Epithel Cells (Auto) 2.0 Urine Bacteria (Auto) 1+ Syphilis IgG Antibody Blood Type Antibody Screen 10/24/20 10/24/20 10/24/20 02:40 02:40 02:44 WBC RBC Hgb Hct MCV MCH MCHC RDW Plt Count Sodium Potassium Chloride Carbon Dioxide Anion Gap BUN Creatinine 0.6 Estimated GFR > 60 BUN/Creatinine Ratio Glucose Uric Acid 4.3 Calcium Total Bilirubin AST ALT Alkaline Phosphatase Lactate Dehydrogenase Total Protein Albumin Albumin/Globulin Ratio Urine Color Urine Turbidity Urine pH Ur Specific [place] Urine Protein Urine Glucose (UA) Urine Ketones Urine Blood Urine Nitrite Urine Bilirubin Urine Urobilinogen Ur Leukocyte Esterase Urine WBC (Auto) Urine RBC (Auto) U Epithel Cells (Auto) Urine Bacteria (Auto) Syphilis IgG Antibody Nonreactive Blood Type A POSITIVE Antibody Screen Negative
[2020-10-24] MEDS ORDERED: miSOPROStol 200 MCG TAB VG SCH (18:00)
--- NOTE | 2020-10-24 18:14 | Progress Note ---
Subjective - Subjective Date of service: 10/24/20 Interval history: FHT Category 1 cervidil removed, no cervical change(closed,long,high) plan for cytotec 25mcg PV Q6 hours x4 doses Maternal/ well being reassuring overall Nilsa Topete MD Objective - Vital Signs Vital Signs: Vital Signs - 12hr 10/24/20 10/24/20 10/24/20 06:14 06:19 06:24 Temperature Pulse Rate 90 95 H 99 H Blood Pressure O2 Sat by Pulse 97 99 100 Oximetry 10/24/20 10/24/20 10/24/20 06:26 06:29 06:34 Temperature Pulse Rate 85 83 84 Blood Pressure 139/71 O2 Sat by Pulse 99 100 Oximetry 10/24/20 10/24/20 10/24/20 06:39 06:42 06:44 Temperature Pulse Rate 92 H 83 86 Blood Pressure 117/56 O2 Sat by Pulse 100 99 Oximetry 10/24/20 10/24/20 10/24/20 07:09 07:14 07:19 Temperature Pulse Rate 81 86 89 Blood Pressure 130/60 O2 Sat by Pulse 98 99 99 Oximetry 10/24/20 10/24/20 10/24/20 07:24 07:26 07:27 Temperature 98.1 F Pulse Rate 81 88 Blood Pressure 136/62 O2 Sat by Pulse 99 Oximetry 10/24/20 10/24/20 10/24/20 07:29 07:34 07:39 Temperature Pulse Rate 89 88 78 Blood Pressure O2 Sat by Pulse 99 99 100 Oximetry 10/24/20 10/24/20 10/24/20 07:40 07:44 07:49 Temperature Pulse Rate 80 96 H 83 Blood Pressure 132/60 O2 Sat by Pulse 99 100 Oximetry 10/24/20 10/24/20 10/24/20 07:54 07:55 07:59 Temperature Pulse Rate 86 83 81 Blood Pressure 115/57 O2 Sat by Pulse 100 100 Oximetry 10/24/20 10/24/20 10/24/20 08:04 08:08 08:10 Temperature Pulse Rate 92 H 83 78 Blood Pressure 116/57 O2 Sat by Pulse 100 99 Oximetry 10/24/20 10/24/20 10/24/20 08:14 08:19 08:24 Temperature Pulse Rate 80 85 82 Blood Pressure O2 Sat by Pulse 100 99 98 Oximetry 10/24/20 10/24/20 10/24/20 08:25 08:28 08:34 Temperature Pulse Rate 78 84 85 Blood Pressure 114/59 O2 Sat by Pulse 98 98 Oximetry 10/24/20 10/24/20 10/24/20 08:39 08:40 08:44 Temperature Pulse Rate 82 82 116 H Blood Pressure 110/56 O2 Sat by Pulse 98 97 Oximetry 10/24/20 10/24/20 10/24/20 08:49 08:54 08:55 Temperature Pulse Rate 83 75 96 H Blood Pressure 106/50 O2 Sat by Pulse 99 97 Oximetry 10/24/20 10/24/20 10/24/20 08:57 08:59 09:04 Temperature Pulse Rate 98 H 82 80 Blood Pressure O2 Sat by Pulse 88 97 98 Oximetry 10/24/20 10/24/20 10/24/20 09:09 09:11 09:14 Temperature Pulse Rate 85 80 83 Blood Pressure 141/70 O2 Sat by Pulse 98 98 Oximetry 10/24/20 10/24/20 10/24/20 09:19 09:24 09:26 Temperature Pulse Rate 83 85 82 Blood Pressure 129/58 O2 Sat by Pulse 98 99 Oximetry 10/24/20 10/24/20 10/24/20 09:29 09:34 09:39 Temperature Pulse Rate 83 85 84 Blood Pressure O2 Sat by Pulse 99 99 99 Oximetry 10/24/20 10/24/20 10/24/20 09:40 09:44 09:49 Temperature Pulse Rate 81 82 83 Blood Pressure 128/59 O2 Sat by Pulse 99 99 Oximetry 10/24/20 10/24/20 10/24/20 09:54 09:56 10:11 Temperature Pulse Rate 83 95 H 86 Blood Pressure 145/72 111/55 O2 Sat by Pulse 98 Oximetry 10/24/20 10/24/20 10/24/20 10:25 10:41 10:55 Temperature Pulse Rate 83 75 81 Blood Pressure 103/53 117/57 122/61 O2 Sat by Pulse Oximetry 10/24/20 10/24/20 10/24/20 11:10 11:26 11:40 Temperature Pulse Rate 80 74 78 Blood Pressure 128/66 120/58 120/57 O2 Sat by Pulse Oximetry 10/24/20 10/24/20 10/24/20 11:56 12:11 12:27 Temperature Pulse Rate 96 H 75 74 Blood Pressure 124/70 118/60 122/62 O2 Sat by Pulse Oximetry 10/24/20 10/24/20 10/24/20 12:57 13:12 13:26 Temperature Pulse Rate 81 82 81 Blood Pressure 133/59 128/58 111/57 O2 Sat by Pulse Oximetry 10/24/20 10/24/20 10/24/20 13:41 13:57 14:13 Temperature Pulse Rate 88 84 82 Blood Pressure 105/58 125/57 140/65 O2 Sat by Pulse Oximetry 10/24/20 10/24/20 10/24/20 14:28 14:56 15:11 Temperature Pulse Rate 81 99 H 68 Blood Pressure 119/58 118/94 122/57 O2 Sat by Pulse Oximetry 10/24/20 10/24/20 10/24/20 15:26 15:41 15:57 Temperature Pulse Rate 83 90 81 Blood Pressure 127/62 121/74 128/57 O2 Sat by Pulse Oximetry 10/24/20 10/24/20 10/24/20 16:11 16:26 16:41 Temperature Pulse Rate 82 82 83 Blood Pressure 127/59 126/59 128/58 O2 Sat by Pulse Oximetry 10/24/20 10/24/20 16:56 17:11 Temperature Pulse Rate 87 97 H Blood Pressure 130/62 132/58 O2 Sat by Pulse Oximetry - Labs Labs: Abnormal Labs 10/24/20 10/24/20 02:40 02:40 WBC 12.2 H MCH 27 L RDW 15.8 H Plt Count 509 H Sodium 132 L Carbon Dioxide 20 L Creatinine 0.5 L Alkaline Phosphatase 154 H Total Protein 6.1 L Albumin 3.6 L Laboratory Results - last 24 hr 10/24/20 10/24/20 10/24/20 02:40 02:40 02:40 WBC 12.2 H RBC 4.07 Hgb 10.8 Hct 33.2 MCV 82 MCH 27 L MCHC 33 RDW 15.8 H Plt Count 509 H Sodium 132 L Potassium 4.5 Chloride 100.4 Carbon Dioxide 20 L Anion Gap 16 BUN 8 Creatinine 0.5 L Estimated GFR > 60 BUN/Creatinine Ratio 16 Glucose 98 Uric Acid Calcium 9.5 Total Bilirubin < 0.20 AST 13 ALT 11 Alkaline Phosphatase 154 H Lactate Dehydrogenase 173 Total Protein 6.1 L Albumin 3.6 L Albumin/Globulin Ratio 1.4 Urine Color Straw Urine Turbidity Clear Urine pH 7.0 Ur Specific [place] 1.009 Urine Protein <15 mg/dl Urine Glucose (UA) Neg Urine Ketones Neg Urine Blood Neg Urine Nitrite Neg Urine Bilirubin Neg Urine Urobilinogen < 2.0 Ur Leukocyte Esterase Neg Urine WBC (Auto) 1.0 Urine RBC (Auto) 2.0 U Epithel Cells (Auto) 2.0 Urine Bacteria (Auto) 1+ Syphilis IgG Antibody Coronavirus (PCR) Blood Type Antibody Screen 10/24/20 10/24/20 10/24/20 02:40 02:40 02:44 WBC RBC Hgb Hct MCV MCH MCHC RDW Plt Count Sodium Potassium Chloride Carbon Dioxide Anion Gap BUN Creatinine 0.6 Estimated GFR > 60 BUN/Creatinine Ratio Glucose Uric Acid 4.3 Calcium Total Bilirubin AST ALT Alkaline Phosphatase Lactate Dehydrogenase Total Protein Albumin Albumin/Globulin Ratio Urine Color Urine Turbidity Urine pH Ur Specific [place] Urine Protein Urine Glucose (UA) Urine Ketones Urine Blood Urine Nitrite Urine Bilirubin Urine Urobilinogen Ur Leukocyte Esterase Urine WBC (Auto) Urine RBC (Auto) U Epithel Cells (Auto) Urine Bacteria (Auto) Syphilis IgG Antibody Nonreactive Coronavirus (PCR) Blood Type A POSITIVE Antibody Screen Negative 10/24/20 Unknown WBC RBC Hgb Hct MCV MCH MCHC RDW Plt Count Sodium Potassium Chloride Carbon Dioxide Anion Gap BUN Creatinine Estimated GFR BUN/Creatinine Ratio Glucose Uric Acid Calcium Total Bilirubin AST ALT Alkaline Phosphatase Lactate Dehydrogenase Total Protein Albumin Albumin/Globulin Ratio Urine Color Urine Turbidity Urine pH Ur Specific [place] Urine Protein Urine Glucose (UA) Urine Ketones Urine Blood Urine Nitrite Urine Bilirubin Urine Urobilinogen Ur Leukocyte Esterase Urine WBC (Auto) Urine RBC (Auto) U Epithel Cells (Auto) Urine Bacteria (Auto) Syphilis IgG Antibody Coronavirus (PCR) Negative Blood Type Antibody Screen
[2020-10-24] MEDS: miSOPROStol 25 MCG TAB VG SCH (18:32)
[2020-10-25] MEDS: miSOPROStol 25 MCG TAB VG SCH (01:41)
[2020-10-25] MEDS: LACTATED RINGERS 1,000 ML IV SCH ×2 (01:42→03:12)
--- NOTE | 2020-10-25 03:42 | Progress Note ---
Subjective - Subjective Date of service: 10/25/20 Interval history: FHT Category 1: FHT 145 baseline, moderate variability +ve accelerations, rare variable noted to olivia of 130bpm lasting ~1 minute with return to baseline. cervix: 1/20%/-3 after cytotecx1 dose Toto: Q 4 minutes palpating moderate Cytotec on hold as pt is michelle. will moniter,start oxytocin if no cervical change in AM Maternal/ well being reassuring overall CRosalina Topete MD Objective - Vital Signs Vital Signs: Vital Signs - 12hr 10/24/20 10/24/20 10/24/20 15:41 15:57 16:11 Temperature Pulse Rate 90 81 82 Respiratory Rate Blood Pressure 121/74 128/57 127/59 Blood Pressure [Right] O2 Sat by Pulse Oximetry 10/24/20 10/24/20 10/24/20 16:26 16:41 16:56 Temperature Pulse Rate 82 83 87 Respiratory Rate Blood Pressure 126/59 128/58 130/62 Blood Pressure [Right] O2 Sat by Pulse Oximetry 10/24/20 10/24/20 10/24/20 17:11 19:06 19:10 Temperature 98.6 F Pulse Rate 97 H 78 Respiratory 18 Rate Blood Pressure 132/58 117/56 Blood Pressure 117/56 [Right] O2 Sat by Pulse Oximetry 10/24/20 10/24/20 10/24/20 19:21 19:26 19:31 Temperature Pulse Rate 82 79 84 Respiratory Rate Blood Pressure Blood Pressure [Right] O2 Sat by Pulse 99 100 100 Oximetry 10/24/20 10/24/20 10/24/20 19:36 19:41 19:46 Temperature Pulse Rate 89 82 77 Respiratory Rate Blood Pressure Blood Pressure [Right] O2 Sat by Pulse 100 100 99 Oximetry 10/24/20 10/24/20 10/24/20 19:51 19:56 20:01 Temperature Pulse Rate 82 80 79 Respiratory Rate Blood Pressure Blood Pressure [Right] O2 Sat by Pulse 99 99 98 Oximetry 10/24/20 10/24/20 10/24/20 20:06 20:07 20:11 Temperature Pulse Rate 81 74 79 Respiratory Rate Blood Pressure 111/55 Blood Pressure [Right] O2 Sat by Pulse 99 98 Oximetry 10/24/20 10/24/20 10/24/20 20:16 20:21 20:26 Temperature Pulse Rate 80 81 79 Respiratory Rate Blood Pressure Blood Pressure [Right] O2 Sat by Pulse 98 98 98 Oximetry 10/24/20 10/24/20 10/24/20 20:31 20:36 20:41 Temperature Pulse Rate 81 82 76 Respiratory Rate Blood Pressure Blood Pressure [Right] O2 Sat by Pulse 98 98 99 Oximetry 10/24/20 10/24/20 10/24/20 20:46 20:51 20:58 Temperature Pulse Rate 104 H 78 Respiratory Rate Blood Pressure Blood Pressure [Right] O2 Sat by Pulse 99 99 100 Oximetry 10/24/20 10/24/20 10/24/20 21:03 21:08 21:13 Temperature Pulse Rate 78 79 82 Respiratory Rate Blood Pressure Blood Pressure [Right] O2 Sat by Pulse 100 100 100 Oximetry 10/24/20 10/24/20 10/24/20 21:18 21:23 21:28 Temperature Pulse Rate 88 97 H 84 Respiratory Rate Blood Pressure Blood Pressure [Right] O2 Sat by Pulse 99 99 100 Oximetry 10/24/20 10/24/20 10/24/20 21:33 21:36 21:38 Temperature Pulse Rate 83 78 81 Respiratory Rate Blood Pressure 123/65 Blood Pressure [Right] O2 Sat by Pulse 100 100 Oximetry 10/24/20 10/24/20 10/24/20 21:43 21:48 21:53 Temperature Pulse Rate 104 H 95 H 103 H Respiratory Rate Blood Pressure Blood Pressure [Right] O2 Sat by Pulse 98 99 99 Oximetry 10/24/20 10/24/20 10/24/20 21:58 22:03 22:08 Temperature Pulse Rate 88 76 85 Respiratory Rate Blood Pressure Blood Pressure [Right] O2 Sat by Pulse 100 100 100 Oximetry 10/24/20 10/24/20 10/24/20 22:13 22:18 22:23 Temperature Pulse Rate 80 77 71 Respiratory Rate Blood Pressure 117/57 Blood Pressure [Right] O2 Sat by Pulse 100 100 100 Oximetry 10/24/20 10/24/20 10/24/20 22:28 22:33 22:38 Temperature Pulse Rate 79 76 77 Respiratory Rate Blood Pressure Blood Pressure [Right] O2 Sat by Pulse 100 100 100 Oximetry 10/24/20 10/24/20 10/24/20 22:43 22:48 22:53 Temperature Pulse Rate 78 90 85 Respiratory Rate Blood Pressure Blood Pressure [Right] O2 Sat by Pulse 100 100 99 Oximetry 10/24/20 10/24/20 10/24/20 22:58 23:05 23:07 Temperature Pulse Rate 79 96 H Respiratory Rate Blood Pressure 132/59 Blood Pressure [Right] O2 Sat by Pulse 100 97 Oximetry 10/24/20 10/24/20 10/24/20 23:10 23:15 23:20 Temperature Pulse Rate 91 H 106 H 92 H Respiratory Rate Blood Pressure Blood Pressure [Right] O2 Sat by Pulse 99 98 98 Oximetry 10/24/20 10/24/20 10/24/20 23:25 23:30 23:35 Temperature Pulse Rate 98 H 95 H 83 Respiratory Rate Blood Pressure Blood Pressure [Right] O2 Sat by Pulse 98 97 99 Oximetry 10/24/20 10/24/20 10/24/20 23:40 23:45 23:50 Temperature Pulse Rate 91 H 86 86 Respiratory Rate Blood Pressure Blood Pressure [Right] O2 Sat by Pulse 98 99 97 Oximetry 10/24/20 10/24/20 10/25/20 23:51 23:55 00:00 Temperature Pulse Rate 90 84 83 Respiratory Rate Blood Pressure 113/58 Blood Pressure [Right] O2 Sat by Pulse 98 99 Oximetry 10/25/20 10/25/20 10/25/20 00:05 00:10 00:15 Temperature Pulse Rate 86 96 H 94 H Respiratory Rate Blood Pressure Blood Pressure [Right] O2 Sat by Pulse 100 99 99 Oximetry 10/25/20 10/25/20 10/25/20 00:20 00:25 00:30 Temperature Pulse Rate 94 H 88 81 Respiratory Rate Blood Pressure Blood Pressure [Right] O2 Sat by Pulse 100 100 100 Oximetry 10/25/20 10/25/20 10/25/20 00:35 00:38 00:40 Temperature Pulse Rate 85 78 84 Respiratory Rate Blood Pressure 119/60 Blood Pressure [Right] O2 Sat by Pulse 100 100 Oximetry 10/25/20 10/25/20 10/25/20 00:45 00:50 00:54 Temperature 99.0 F Pulse Rate 78 74 Respiratory 18 Rate Blood Pressure Blood Pressure [Right] O2 Sat by Pulse 100 100 Oximetry 10/25/20 10/25/20 10/25/20 00:55 01:00 01:05 Temperature Pulse Rate 82 82 77 Respiratory Rate Blood Pressure Blood Pressure [Right] O2 Sat by Pulse 100 100 100 Oximetry 10/25/20 10/25/20 10/25/20 01:10 01:15 01:20 Temperature Pulse Rate 85 82 87 Respiratory Rate Blood Pressure Blood Pressure [Right] O2 Sat by Pulse 99 100 100 Oximetry 10/25/20 10/25/20 10/25/20 01:22 01:25 01:30 Temperature Pulse Rate 90 80 84 Respiratory Rate Blood Pressure 120/79 Blood Pressure [Right] O2 Sat by Pulse 99 99 Oximetry 10/25/20 10/25/20 10/25/20 01:35 01:40 01:45 Temperature Pulse Rate 81 83 81 Respiratory Rate Blood Pressure Blood Pressure [Right] O2 Sat by Pulse 98 100 99 Oximetry 10/25/20 10/25/20 10/25/20 01:50 01:55 02:00 Temperature Pulse Rate 84 84 86 Respiratory Rate Blood Pressure Blood Pressure [Right] O2 Sat by Pulse 99 99 99 Oximetry 10/25/20 10/25/20 10/25/20 02:05 02:06 02:10 Temperature Pulse Rate 79 80 83 Respiratory Rate Blood Pressure 115/42 Blood Pressure [Right] O2 Sat by Pulse 99 99 Oximetry 10/25/20 10/25/20 10/25/20 02:18 02:23 02:28 Temperature Pulse Rate 95 H 82 86 Respiratory Rate Blood Pressure Blood Pressure [Right] O2 Sat by Pulse 99 99 99 Oximetry 10/25/20 10/25/20 10/25/20 02:33 02:38 02:43 Temperature Pulse Rate 89 93 H 89 Respiratory Rate Blood Pressure Blood Pressure [Right] O2 Sat by Pulse 99 100 99 Oximetry 10/25/20 10/25/20 10/25/20 02:48 02:52 02:53 Temperature Pulse Rate 84 73 75 Respiratory Rate Blood Pressure 90/43 Blood Pressure [Right] O2 Sat by Pulse 98 99 Oximetry 10/25/20 10/25/20 10/25/20 02:58 03:00 03:03 Temperature Pulse Rate 88 81 76 Respiratory Rate Blood Pressure 114/55 Blood Pressure [Right] O2 Sat by Pulse 99 99 Oximetry 10/25/20 10/25/20 10/25/20 03:08 03:13 03:18 Temperature Pulse Rate 96 H 71 76 Respiratory Rate Blood Pressure Blood Pressure [Right] O2 Sat by Pulse 100 99 99 Oximetry 10/25/20 10/25/20 10/25/20 03:23 03:28 03:33 Temperature Pulse Rate 67 75 71 Respiratory Rate Blood Pressure Blood Pressure [Right] O2 Sat by Pulse 99 98 98 Oximetry 10/25/20 10/25/20 03:38 03:39 Temperature Pulse Rate 70 74 Respiratory Rate Blood Pressure 135/62 Blood Pressure [Right] O2 Sat by Pulse 99 Oximetry - Labs Labs: Abnormal Labs 10/24/20 10/24/20 02:40 02:40 WBC 12.2 H MCH 27 L RDW 15.8 H Plt Count 509 H Sodium 132 L Carbon Dioxide 20 L Creatinine 0.5 L Alkaline Phosphatase 154 H Total Protein 6.1 L Albumin 3.6 L Laboratory Results - last 24 hr 10/24/20 10/24/20 10/24/20 02:40 02:44 Unknown Syphilis IgG Antibody Nonreactive Coronavirus (PCR) Negative Blood Type A POSITIVE Antibody Screen Negative
[2020-10-25 08:15] VITALS: BP 129/63
--- NOTE | 2020-10-25 08:47 | Discharge Summary ---
Providers - Providers Date of Admission: 10/24/20 04:11 Date of discharge: 10/25/20 Attending physician: KIMBER ANGELA MD Primary care physician: KIMBER ANGELA MD Hospitalization Reason for admission: other (gest htn) Episiotomy: none Laceration: none Other procedures: none complications: none Hospital course: Pt was admitted on 10/24/[address] Angela for gest htn. Pt's PIH labs did not show preeclampsia. Pt has denied harmon, visual problems, or epigastric pain and her b/ps have been wnl. 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 S&S of preeclampsia were discussed with pt and she was advised to call if symptoms dev. Condition at discharge: Stable Disposition: DC-01 TO HOME OR SELFCARE Plan - Provider Discharge Summary Additional instructions: [] Smoking cessation referral if applicable(refer to patient education folder for contact #) [] Refer to [facility] Booklet Call your doctor immediately for: * Fever > 100.5 * Heavy vaginal bleeding ( >1 pad per hour) * Severe persistent headache * Shortness of breath * Reddened, hot, painful area to leg or breast * Drainage or odor from incision. * Keep incision clean and dry at all times and follow doctor's instructions regarding bathing/showering - Follow up plan Follow up: KIMBER ANGELA MD [Primary Care Provider] - 10/28/20
== END 2020-10-25 09:05 | disposition home or self-care (01) | DRG 782 ==
LOC: TRG 01:52 → APU 01:58 → TRG 04:11 → LD 04:11
PROVIDERS: ADMIT Obstetrics & Gynecology; ATTEND Obstetrics & Gynecology
DX: O13.3 Gestational [pregnancy-induced] hypertension without significant proteinuria, third trimester (principal); O99.213 Obesity complicating pregnancy, third trimester; Z3A.37 37 weeks gestation of pregnancy; E66.9 Obesity, unspecified; Z20.822 Contact with and (suspected) exposure to COVID-19
CPT/HCPCS: 36415; 80053; 81001; 82565; 83615; 84550; 85027; 86592; 86850; 86900; 86901; G0378; J7120; Q0162; U0003

== ENCOUNTER 2020-10-26 00:35 | Outpatient (CLI) | payer OTHER ==
[2020-10-26 00:40] VITALS: BP 138/79
[2020-10-26] MEDS ORDERED: ONDANSETRON 4 MG ODT TAB PO ONE (01:13)
== END 2020-10-26 02:10 | disposition home or self-care (01) ==
LOC: TRG 00:35 → APU 00:37 → TRG 02:10
DX: Z34.93 Encounter for supervision of normal pregnancy, unspecified, third trimester (principal); Z3A.38 38 weeks gestation of pregnancy
CPT/HCPCS: 59025; Q0162

== ENCOUNTER 2020-10-27 17:04 | Inpatient (IN) | payer OTHER ==
[2020-10-27] MEDS ORDERED: MINERAL OIL 30 ML ORAL LIQD PO PRN (17:52)
[2020-10-27] MEDS ORDERED: LIDOCAINE (2%) 20 MG/1 ML VIAL 20 ML MDV INFILTRATI ONE (17:52)
[2020-10-27] MEDS ORDERED: ACETAMINOPHEN 325 MG TAB PO PRN (17:52)
[2020-10-27] MEDS ORDERED: ePHEDrine SULFATE 50 MG/1 ML INJ IV PRN (17:52)
[2020-10-27] MEDS ORDERED: LOPERAMIDE 2 MG CAP PO PRN (17:52)
[2020-10-27] MEDS ORDERED: CARBOPROST TROMETHAMINE 250 MCG/1 ML INJ IM PRN (17:52)
[2020-10-27] MEDS ORDERED: TERBUTALINE 1 MG/1 ML INJ SUB-Q PRN (17:52)
[2020-10-27] MEDS ORDERED: OXYTOCIN 10 UNIT/1 ML INJ IM PRN (17:52)
[2020-10-27] MEDS ORDERED: miSOPROStol 200 MCG TAB PR PRN (17:52)
[2020-10-27] MEDS ORDERED: METHYLERGONOVINE MALEATE 0.2 MG/ML VIAL IM PRN (17:52)
[2020-10-27] MEDS ORDERED: OXYTOCIN DRIP 30 UNITS/500 ML BAG IV SCH (18:00)
[2020-10-27 19:40] LABS: Hematocrit 35.9 % (30.3-42.9); Hemoglobin 11.7 gm/dl (10.1-14.3); Mean Corpuscular HGB Conc 33 % (30-34); Mean Corpuscular Volume 82 fl (79-97); Platelet Count 463 K/mm3 (140-440); Red Blood Count 4.37 M/mm3 (3.65-5.03); Red Cell Distribution Width 15.9 % (13.2-15.2)
--- NOTE | 2020-10-27 22:51 | History and Physical Report ---
History of Present Illness Date of examination: 10/27/20 Date of admission: 10/27/20 18:59 Chief complaint: C/O SROM at 1640 today. History of present illness: 20 y/o presents to [facility] @ 38.2wks with c/o SROM @ 1640 today. Pt denies VB and admits to active FM. Pt states she initiated her pnc early in her preg @ [facility]. Pt denies any complications throughout her preg. Med/surg/social hx unremarkable. Family hx of DM. Pt was admitted to L&D for delivery. No PNRs are available. 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 Family/Genetic History: diabetes Social history: single, full code - Obstetrical History Expected Date of Delivery: 11/08/20 Actual Gestation: 38 Week(s) 3 Day(s) : 3 Para: 0 Hx # Term Pregnancies: 0 Number of Pregnancies: 0 Spontaneous Abortions: 1 Induced : 1 Number of Living Children: 0 Medications and Allergies Allergies Allergy/AdvReac Type Severity Reaction Status Date / Time FOOD ALLERGIES Allergy Unknown Uncoded 05/15/20 09:28 Home Medications Medication Instructions Recorded Confirmed Last Taken Type No Known Home Medications [No 10/24/20 10/24/20 Unknown History Reported Home Medications] Active Meds: Active Medications Acetaminophen (Acetaminophen 325 Mg Tab) 650 mg PO Q4H PRN PRN Reason: Pain, Mild (1-3) Butorphanol Tartrate (Butorphanol 2 Mg/1 Ml Inj) 1 mg IV Q2H PRN PRN Reason: Pain, Moderate(4-6) LABOR PAIN Carboprost Tromethamine (Carboprost Tromethamine 250 Mcg/1 Ml Inj) 250 mcg IM ONCE PRN PRN Reason: Uterine Bleeding Ephedrine Sulfate (Ephedrine Sulfate 50 Mg/1 Ml Inj) 10 mg IV Q2M PRN PRN Reason: Hypotension Oxytocin/Sodium Chloride (Pitocin/Ns 30 Unit/500ml) 30 units in 500 mls @ 2 mls/hr IV TITR MARGARITA; Protocol Lactated Ringer's (Lactated Ringers) 1,000 mls @ 125 mls/hr IV DIRECT MARGARITA Oxytocin/Sodium Chloride (Pitocin/Ns 30 Unit/500ml) 30 units in 500 mls @ 40 mls/hr IV TITR MARGARITA; Protocol Loperamide HCl (Loperamide 2 Mg Cap) 2 mg PO ONCE PRN PRN Reason: give with Hemabate Methylergonovine Maleate (Methylergonovine Maleate 0.2 Mg/Ml Vial) 0.2 mg IM ONCE PRN PRN Reason: Uterine Bleeding Mineral Oil (Mineral Oil 30 Ml Oral Liqd) 30 ml PO QHS PRN PRN Reason: Constipation Misoprostol (Misoprostol 200 Mcg Tab) 800 mcg MS ONCE PRN PRN Reason: Uterine Bleeding Oxytocin (Oxytocin 10 Unit/1 Ml Inj) 10 unit IM ONCE PRN PRN Reason: Uterine Bleeding Terbutaline Sulfate (Terbutaline 1 Mg/1 Ml Inj) 0.25 mg SUB-Q ONCE PRN PRN Reason: Hyperstimulation/Hypertonicity Review of Systems All systems: negative Eyes: deferred Ears, nose, mouth and throat: deferred Breasts: normal Genitourinary: deferred Rectal Exam: normal exam-external/orifice - Vital Signs Vital signs: Vital Signs Pulse Resp BP Pulse Ox 97 H 16 135/85 98 10/27/20 17:45 10/27/20 17:45 10/27/20 17:45 10/27/20 17:45 Temp Pulse Resp BP Pulse Ox 97.1 F L 106 H 16 152/74 99 10/27/20 19:55 10/27/20 21:24 10/27/20 17:45 10/27/20 21:24 10/27/20 18:30 - Physical Exam Breasts: Positive: normal Abdomen: Positive: normal appearance, soft, normal bowel sounds, other (gravid) Genitourinary (Female): Positive: normal external genitalia, normal perenium Vulva: both: normal Vagina: Positive: normal moisture Uterus: Positive: enlarged, normal contour, other (gravid) Adnexa: both: normal Anus/Rectum: Positive: normal perianal skin Extremities: Positive: normal - Obstetrical FHR: auscultation normal, category 1 Uterine Contraction Monitor Mode: External Cervical Dilatation: 1.5 (per nurse) Cervical Effacement Percentage: 50 (per nurse) station: -3 Uterine Contraction Frequency (min): irreg Uterine Contraction Pattern: Irregular Uterine Tone Measurement Phase: Resting Uterine Contraction Intensity: Mild () Results Result Diagrams: 10/27/20 19:10 Abnormal lab results 10/27/20 Range/Units 19:10 MCH 27 L (28-32) pg RDW 15.9 H (13.2-15.2) % Plt Count 463 H (140-440) K/mm3 All other labs normal. Assessment and Plan A: IUP@ 38.2 wks with SROM @ 1640 on 10/27/20 (cl fluid) GBS unknown Elevated plt 463 No PNRs P: Admit to L&D Continuous monitoring GBS protocal Start Pitocin per protocal Staff will obtain PNR domenico Anticipate - Patient Problems (1) Supervision of normal IUP (intrauterine ) in primigravida Current Visit: Yes Status: Acute
[2020-10-28] MEDS: LACTATED RINGERS 1,000 ML IV SCH ×3 (00:17→18:46)
[2020-10-28] MEDS: OXYTOCIN DRIP 30 UNITS/500 ML BAG IV SCH ×2 (00:19→17:00)
[2020-10-28] MEDS ORDERED: NS ONE (01:20)
[2020-10-28] MEDS ORDERED: AMPICILLIN ONE (01:20)
[2020-10-28] MEDS ORDERED: AMPICILLIN/NS 2 GM/100 ML 2 GM/100 ML BAG IV ONE ×2 (01:26→07:30)
--- NOTE | 2020-10-28 01:27 | Event Note ---
Date: 10/28/20 Notified by nurse that pt's b/p was 179/84 and her temp was 102.5. Pt denied harmon, visual problems, or epigastric pain. Hydralazine 10mg IV, Labetalol 100mg bid, Tylenol 650 mg prn, and Clind/Gent/Ampi started along with Mgso4 with Mg prec. B/P down to 158/77 after Hydralazine. Will cont moniitoring. Dr Shaw was notified.
[2020-10-28] MEDS: BUTORPHANOL 2 MG/1 ML INJ IV PRN ×2 (02:58→09:35)
[2020-10-28 03:50] LABS: Hematocrit 35.1 % (30.3-42.9); Hemoglobin 11.5 gm/dl (10.1-14.3)
[2020-10-28 04:07] LABS: Alanine Aminotransferase 7 units/L (7-56); Uric Acid 4.3 mg/dL (3.5-7.6)
[2020-10-28] MEDS: AMPICILLIN/NS 1 GM/50 ML 1 GM/50 ML BAG IV SCH ×2 (09:24→17:00)
--- NOTE | 2020-10-28 10:34 | Event Note ---
Date: 10/28/20 Assumed care of patient. Called [facility] office and requested records; they state they are going to send records now. SVE /-2/OP position. Advised patient's nurse to put patient back on regular monitoring as Rosa Isela is not tracing well. Once good tracing is achieved, nurse to restart Pitocin for augmentation of labor.
[2020-10-28] MEDS ORDERED: MAGNESIUM SULFATE 4 GM/100 ML BAG IV ONE (11:00)
[2020-10-28] MEDS ORDERED: MAGNESIUM SULFATE 40GM/1000ML 40 GM/1,000 ML BAG IV SCH (11:00)
[2020-10-28] MEDS ORDERED: diphenhydrAMINE 50 MG/ML VIAL IV PRN (11:30)
--- NOTE | 2020-10-28 12:38 | Event Note ---
Date: 10/28/20 Several late appearing FHR decelerations noted, not recurrent. FHR baseline 130 with minimal to moderate variability. Patient is not currently receiving Pitocin as nurse states she had not had time to start the Pitocin yet. Patient repositioned into lateral tilt, oxygen applied per face mask. scalp stimulation performed with small acceleration noted. Spontaneous contractions approimately every 6 minutes. Uterus palpates soft between contractions. SVE 5/80/-1.
--- NOTE | 2020-10-28 13:42 | Event Note ---
Date: 10/28/20 FSH applied to better trace FHR. FHR baseline 130 with minimal variability, occasional late deceleration (not repetitive), occasional small acceleration. Temp. 98.4. Ampicillin, lateral positioning, and oxygen continue. SVE unchanged. Called Dr. Shaw at 13:30 and informed him of FHR tracing, cervical exam, interventions taken, and need to expedite delivery. Dr. Shaw states he will come and evaluate patient.
[2020-10-28] MEDS ORDERED: LACTATED RINGERS 1,000 ML IV SCH ×2 (14:00→22:45)
[2020-10-28] MEDS ORDERED: ceFAZolin/Water 2 GM/20 ML 2 GM/20 ML SYRINGE IV NR (14:00)
[2020-10-28] MEDS ORDERED: OXYTOCIN DRIP 30 UNITS/500 ML BAG IV SCH (14:00)
--- NOTE | 2020-10-28 14:09 | Event Note ---
Date: 10/28/20 Dr. Shaw came and evaluated patient and performed SVE. section called at 13:59. Orders put in and team notified.
--- NOTE | 2020-10-28 14:25 | Anesthesia Consultation ---
Anesthesia Consult and Med Hx Date of service: 10/28/20 - Airway Anesthetic Teeth Evaluation: Good ROM Head & Neck: Adequate Mental/Hyoid Distance: Adequate Mallampati Class: Class II Intubation Access Assessment: Probably Good - Pulmonary Exam CTA: Yes - Cardiac Exam Cardiac Exam: RRR - Pre-Operative Health Status ASA Pre-Surgery Classification: ASA3 Proposed Anesthetic Plan: Spinal - Pulmonary Hx Asthma: No COPD: No Hx Pneumonia: No - Cardiovascular System Hx Hypertension: Yes - Central Nervous System Hx Seizures: No Hx Psychiatric Problems: No - Endocrine Hx Renal Disease: No Hx End Stage Renal Disease: No Hx Hypothyroidism: No Hx Hyperthyroidism: No - Hematic Hx Anemia: No Hx Sickle Cell Disease: No - Other Systems Hx Alcohol Use: No Hx Obesity: Yes
--- NOTE | 2020-10-28 14:27 | Anesthesia Day of Surgery ---
Anesthesia Day of Surgery - Day of Surgery Patient Examined: Yes Patient H&P Reviewed: Yes Patient is NPO: Yes
[2020-10-28] MEDS ORDERED: FAMOTIDINE 20 MG/2 ML INJ IV ONE (15:00)
[2020-10-28] MEDS ORDERED: METOCLOPRAMIDE 10 MG/2 ML INJ IV ONE (15:00)
[2020-10-28] MEDS ORDERED: BICITRA ORAL LIQD 30ML PO ONE (15:00)
[2020-10-28 16:21] LABS: Hematocrit 35.3 % (30.3-42.9); Hemoglobin 11.5 gm/dl (10.1-14.3); Mean Corpuscular HGB Conc 33 % (30-34); Mean Corpuscular Volume 83 fl (79-97); Platelet Count 432 K/mm3 (140-440); Red Blood Count 4.26 M/mm3 (3.65-5.03); Red Cell Distribution Width 16.1 % (13.2-15.2)
[2020-10-28] MEDS ORDERED: dexAMETHasone 20 MG/5 ML VIAL ONE (17:01)
[2020-10-28] MEDS ORDERED: ONDANSETRON 4 MG/2 ML INJ ONE (17:01)
[2020-10-28] MEDS ORDERED: SODIUM CHLORIDE 0.9% 500 ML 500 ML ONE (17:01)
[2020-10-28] MEDS ORDERED: BUPIVACAINE/PF (0.5%) 5 MG/1 ML 30 ML VIAL INFILTRATI ONE (17:03)
[2020-10-28] MEDS ORDERED: KETOROLAC 30 MG/1 ML INJ ONE (17:03)
[2020-10-28] MEDS ORDERED: SODIUM CHLORIDE 0.9% 100 ML ONE (17:03)
[2020-10-28] MEDS ORDERED: PHENYLEPHRINE 10 MG/1 ML INJ SDV ONE (17:03)
--- NOTE | 2020-10-28 17:14 | Event Note ---
Date: 10/28/20 pt evaluated with a category I FHR and pelvic 5-6/80/-1 vtx and pt without any signs of chorio. IV piggyback with empty solution however ampicillin powder still in place. Nurse stated she did not hang that med and charge nurse notified by me. Will give gentamycin if signs of chorio noted. Will restart IV pitocin and augment and CNMW Linda notified. Discussed the plan of care and pt agreeable to get epidural for pain relief and augmentation with pitocin. IUPC placed by me. All questions encouraged and answered
[2020-10-28] MEDS ORDERED: ePHEDrine SULFATE 50 MG/1 ML INJ IV PRN (18:21)
[2020-10-28] MEDS ORDERED: NALOXONE 2 MG/2 ML INJ IV PRN (18:21)
--- NOTE | 2020-10-28 18:43 | Progress Note ---
Labor Epidural - Labor Epidural Start Time: 18:31 Stop Time: 18:38 Performed by:: MATT JUDD Procedure: Patient is requesting epidural for labor pain. H&P, and labs reviewed. Procedure explained, questions answered, consent obtained. Patient in sitting position with blood pressure cuff and pulse ox on and working. Timeout performed immediately before start of procedure. Sterile chlorahexadine 0.5% prep/drape. 3 mL 1% lidocaine skin wheal at L[3]-L[4]. 18-gauge Fittrtead epidural needle advanced to [id number] with saline at 9 cm. Epidural catheter advanced to 15 cm, negative aspiration for blood and csf, negative test dose 3 ml 1.5% lidocaine with epinephrine. Epidural dexmedetomidine [30] mcg administered. Sterile steri-strips and tegaderm applied, followed by tape reinforcement. Patient tolerated procedure well. Jc KEN
[2020-10-28] MEDS ORDERED: SODIUM CHLORIDE 0.9% 1000 ML 1,000 ML VG SCH (19:00)
[2020-10-28] MEDS ORDERED: fentaNYL 100 MCG/2 ML INJ IV ONE (19:00)
[2020-10-28] MEDS ORDERED: fentaNYL-BUPIV 2 MCG/ML-0.125% 200 MCG/100 ML BAG EPIDURAL SCH (19:00)
[2020-10-28 19:18] LABS: Hematocrit 35.3 % (30.3-42.9); Hemoglobin 11.4 gm/dl (10.1-14.3); Mean Corpuscular HGB Conc 32 % (30-34); Mean Corpuscular Volume 83 fl (79-97); Platelet Count 502 K/mm3 (140-440); Red Blood Count 4.28 M/mm3 (3.65-5.03); Red Cell Distribution Width 16.1 % (13.2-15.2)
[2020-10-28 19:25] LABS: Alanine Aminotransferase 7 units/L (7-56); Albumin 3.1 g/dL (3.9-5); Blood Urea Nitrogen 4 mg/dL (7-17); Calcium 9.1 mg/dL (8.4-10.2); Hemolysis Index 6; Uric Acid 4.2 mg/dL (3.5-7.6)
[2020-10-28] MEDS ORDERED: LIDOCAINE (2%) 20 MG/1 ML VIAL 20 ML MDV INFILTRATI ONE (19:25)
[2020-10-28 19:31] LABS: BUN/Creatinine Ratio 8
[2020-10-28 20:02] LABS: Band Neutrophils # (Manual) 0.6 K/mm3; RBC Morphology Normal; Total Cells Counted 100
[2020-10-28] MEDS ORDERED: LANOLIN/ZINC/DIMETHICONE (LANSINOH) 7 GM TP PRN (20:15)
[2020-10-28] MEDS ORDERED: WITCH HAZEL/ GLYCERIN PAD TP PRN (20:15)
[2020-10-28] MEDS ORDERED: MAGNESIUM HYDROXIDE (MOM) ORAL LIQD UDC PO PRN (20:15)
[2020-10-28] MEDS ORDERED: GENTAMICIN 100 MG in SODIUM CHLORIDE 0.9% 100 ML IV SCH (20:30)
--- NOTE | 2020-10-28 20:34 | Procedure Note ---
OB Delivery Note - Delivery Date of Delivery: 10/28/20 Surgeon: LORRAINE GEORGE Estimated blood loss: other (150 cc) - Vaginal Delivery presentation: vertex Delivery position: OA Intrapartum events: none Delivery induction: none Delivery augmentation: pitocin Delivery monitor: external FHT, external uterine, internal FHT, internal uterine Route of delivery: Delivery placenta: spontaneous Delivery cord: 3 umbilical vessels Episiotomy: none Delivery laceration: none Anesthesia: epidural Delivery comments: Spontaneous vaginal delivery at 19:36 of liveborn female infant weighing 5 lbs. 2 oz. over intact perineum with apgars of 8/9. was atraumatic. Nuchal cord times 2, manually reduced at time of . Baby was vigorous at and cried right away. Baby was placed skin to skin with mom immediately after delivery. Baby dried and suctioned with bulb syringe. 3 vessel cord double clamped and cut. Spontaneous delivery of intact placenta and membranes. Marginal cord insertion ([place] placenta) noted. Pitocin to IV fluids after delivery of placenta. Fundus firm and midline. EBL 150 cc. No lacerations noted. Vaginal sweep negative. Sponge count correct. Mother and baby stable.
[2020-10-28] MEDS: IBUPROFEN 600 MG TAB PO SCH (21:30)
[2020-10-28] MEDS: GENTAMICIN/NS 100 MG/100 ML 100 MG/100 ML BAG IV SCH (23:05)
[2020-10-28] MEDS: DOCUSATE SODIUM 100 MG CAP PO SCH (23:06)
[2020-10-29] MEDS: AMPICILLIN/NS 2 GM/100 ML 2 GM/100 ML BAG IV SCH ×4 (00:57→18:26)
[2020-10-29] MEDS: IBUPROFEN 600 MG TAB PO SCH ×4 (03:05→22:00)
[2020-10-29] MEDS: GENTAMICIN/NS 100 MG/100 ML 100 MG/100 ML BAG IV SCH ×2 (08:00→15:08)
[2020-10-29 13:56] LABS: Hematocrit 30.6 % (30.3-42.9); Hemoglobin 9.9 gm/dl (10.1-14.3)
--- NOTE | 2020-10-29 18:26 | Progress Note ---
Assessment and Plan PPD#1 doing well. 1. Routine care 2. Discharge home in am if stable. Subjective Date of service: 10/29/20 Principal diagnosis: PPD#1 with leucocytosis Interval history: pt has no complaints. pt pain is controlled with motrin and pt is breast feeding. pt wants to decide on control at 6wk . Vag bleeding less than a period and diet tolerated well. Denies fever or chills or dysuria. Objective - Constitutional Vitals: Vital Signs - 12hr 10/29/20 10/29/20 10/29/20 08:38 11:58 16:36 Temperature 98.0 F 97.9 F 97.9 F Pulse Rate 84 104 H 77 Respiratory 20 20 20 Rate Blood Pressure 133/67 122/78 137/84 O2 Sat by Pulse 98 95 98 Oximetry General appearance: Present: no acute distress - Breasts Breasts: normal - Cardiovascular Rhythm: regular Extremities: No edema - Gastrointestinal General gastrointestinal: Present: soft, non-tender - Genitourinary Female genitourinary: normal (Fundus firm 1cm umbilicus and non-tender; Obese) - Musculoskeletal Musculoskeletal: strength equal bilaterally - Labs CBC & Chem 7: 10/29/20 18:00 10/28/20 18:44 Labs: Abnormal lab results 10/28/20 10/28/20 10/29/20 Range/Units 18:44 18:44 13:41 WBC 15.5 H (4.5-11.0) K/mm3 Hgb 9.9 L (10.1-14.3) gm/dl MCH 27 L (28-32) pg RDW 16.1 H (13.2-15.2) % Plt Count 502 H (140-440) K/mm3 Seg Neuts % (Manual) 73.0 H (40.0-70.0) % Lymphocytes % (Manual) 13.0 L (13.4-35.0) % Monocytes % (Manual) 10.0 H (0.0-7.3) % Seg Neutrophils # Man 11.3 H (1.8-7.7) K/mm3 Monocytes # (Manual) 1.6 H (0.0-0.8) K/mm3 Sodium 134 L (137-145) mmol/L Carbon Dioxide 18 L (22-30) mmol/L BUN 4 L (7-17) mg/dL Creatinine 0.5 L (0.6-1.2) mg/dL Alkaline Phosphatase 151 H (35-129) units/L Albumin 3.1 L (3.9-5) g/dL Medications & Allergies - Medications Allergies/Adverse Reactions: Allergies chocolate flavor Allergy (Verified 10/29/20 12:40) Anaphylaxis Home Medications: Home Medications Medication Instructions Recorded Confirmed Last Taken Type No Known Home Medications [No 10/24/20 10/29/20 Unknown History Reported Home Medications] Active Medications: Generic Name Dose Route Start Last Admin Trade Name Freq PRN Reason Stop Dose Admin Docusate Sodium 100 mg 10/28/20 22:00 10/28/20 23:06 Docusate Sodium 100 Mg Cap PO 100 mg BID MARGARITA Administration Ampicillin Sodium 2 gm in 100 mls @ 100 mls/hr 10/28/20 23:00 10/29/20 18:26 Ampicillin/Ns 2 Gm/100 Ml IV 100 mls/hr Q6HR MARGARITA Administration Protocol Gentamicin Sulfate/Sodium Chloride 100 mg in 100 mls @ 133.333 mls/hr 10/28/20 22:00 10/29/20 15:08 Gentamicin/Ns 100 Mg/100 Ml IV 133.333 mls/hr Q8HR MARGARITA Administration Lactated Ringer's 1,000 mls @ 125 mls/hr 10/28/20 22:45 10/28/20 23:06 Lactated Ringers IV 125 mls/hr DIRECT MARGARITA Administration Ibuprofen 600 mg 10/28/20 21:00 10/29/20 15:08 Ibuprofen 600 Mg Tab PO 600 mg Q6HR MARGARITA Administration Magnesium Hydroxide 30 ml 10/28/20 20:15 Magnesium Hydroxide (Mom) Oral Liqd Udc PO HS PRN Constipation Multi-Ingredient Ointment 1 applic 10/28/20 20:15 Lanolin/Zinc/Dimethicone (Lansinoh) 7 Gm TP PRN PRN Sore Nipples Sodium Chloride 10 ml 10/28/20 21:00 Sodium Chloride 0.9% 10 Ml Flush Syringe IV 10/29/20 20:59 PRN NR Witch May/Glycerin 1 each 10/28/20 20:15 Witch May/ Glycerin Pad TP PRN PRN Hemorrhoid/cleansing/soothing
[2020-10-29 18:35] LABS: Basophils # (Auto) 0.1 K/mm3 (0.0-0.1); Eosinophils # (Auto) 0.2 K/mm3 (0.0-0.4); Eosinophils % (Auto) 1.9 % (0.0-4.3); Hematocrit 30.6 % (30.3-42.9); Hemoglobin 9.9 gm/dl (10.1-14.3); Lymphocytes # (Auto) 2.7 K/mm3 (1.2-5.4); Lymphocytes % (Auto) 21.9 % (13.4-35.0); Mean Corpuscular HGB Conc 32 % (30-34); Mean Corpuscular Volume 84 fl (79-97); Monocytes # (Auto) 0.9 K/mm3 (0.0-0.8); Monocytes % (Auto) 6.9 % (0.0-7.3); Platelet Count 378 K/mm3 (140-440); Red Blood Count 3.65 M/mm3 (3.65-5.03); Red Cell Distribution Width 16.2 % (13.2-15.2)
--- NOTE | 2020-10-29 21:11 | Post Anesthesia Evaluation ---
- Post Anesthesia Evaluation Patient Participated: Yes Airway Patent: Yes Stable Respiratory Function: Yes Nausea/Vomiting: No Temp > 96.8F: Yes Pain Manageable: Yes Adequeate Hydration: Yes Anesthesia Complications: No Block Receding Appropriately: Yes
[2020-10-29] MEDS: DOCUSATE SODIUM 100 MG CAP PO SCH (22:00)
[2020-10-30] MEDS: AMOXICILLIN/K CLAV 875/125MG TAB PO SCH ×2 (00:03→09:20)
[2020-10-30] MEDS: IBUPROFEN 600 MG TAB PO SCH ×3 (00:15→11:20)
--- NOTE | 2020-10-30 04:59 | Progress Note ---
Assessment and Plan PPD#2 with asymptomatic anemia, now with normal pulse and resolving leucocytosis 1. Discharge home today on augmentin x5days and motrin prn. Subjective Date of service: 10/30/20 Principal diagnosis: PPD#2 with resolving leucocytosis, afebrile and now with normal heart rate Interval history: Pt has no complaints and desires to go home. Objective - Constitutional Vitals: Vital Signs - 12hr 10/29/20 10/29/20 22:00 23:39 Temperature 98.6 F Pulse Rate 77 Respiratory 18 20 Rate Blood Pressure 138/73 O2 Sat by Pulse 100 Oximetry General appearance: Present: no acute distress - Breasts Breasts: normal - Genitourinary Female genitourinary: other (fundus firm and non-tender) - Psychiatric Psychiatric: appropriate mood/affect - Labs CBC & Chem 7: 10/29/20 18:00 10/28/20 18:44 Labs: Abnormal lab results 10/29/20 10/29/20 Range/Units 13:41 18:00 WBC 12.4 H (4.5-11.0) K/mm3 Hgb 9.9 L 9.9 L (10.1-14.3) gm/dl MCH 27 L (28-32) pg RDW 16.2 H (13.2-15.2) % [place] # (Auto) 0.9 H (0.0-0.8) K/mm3 Seg Neutrophils # 8.4 H (1.8-7.7) K/mm3 Medications & Allergies - Medications Allergies/Adverse Reactions: Allergies chocolate flavor Allergy (Verified 10/29/20 12:40) Anaphylaxis Home Medications: Home Medications Medication Instructions Recorded Confirmed Last Taken Type Amoxicillin/Potassium Clav 1 each PO BID 5 Days #10 tablet 10/30/20 Unknown Rx [Augmentin 875-125 Tablet] Ibuprofen [Motrin] 800 mg PO Q8HR PRN 21 Days #40 10/30/20 Unknown Rx tablet Active Medications: Generic Name Dose Route Start Last Admin Trade Name Freq PRN Reason Stop Dose Admin Amoxicillin/Clavulanate Potassium 1 each 10/30/20 00:00 10/30/20 00:03 Amoxicillin/K Clav 875/125mg Tab PO 1 each Q12HR MARGARITA Administration Protocol Docusate Sodium 100 mg 10/28/20 22:00 10/29/20 22:00 Docusate Sodium 100 Mg Cap PO 100 mg BID MARGARITA Administration Lactated Ringer's 1,000 mls @ 125 mls/hr 10/28/20 22:45 10/28/20 23:06 Lactated Ringers IV 125 mls/hr DIRECT MARGARITA Administration Ibuprofen 600 mg 10/28/20 21:00 10/30/20 00:15 Ibuprofen 600 Mg Tab PO Not Given Q6HR MARGARITA Magnesium Hydroxide 30 ml 10/28/20 20:15 Magnesium Hydroxide (Mom) Oral Liqd Udc PO HS PRN Constipation Multi-Ingredient Ointment 1 applic 10/28/20 20:15 Lanolin/Zinc/Dimethicone (Lansinoh) 7 Gm TP PRN PRN Sore Nipples Witch May/Glycerin 1 each 10/28/20 20:15 Witch May/ Glycerin Pad TP PRN PRN Hemorrhoid/cleansing/soothing
--- NOTE | 2020-10-30 05:01 | Discharge Summary ---
Providers - Providers Date of Admission: 10/27/20 18:59 Date of discharge: 10/30/20 Attending physician: ILEANA VELEZ MD Primary care physician: ILEANA VELEZ MD Hospitalization Reason for admission: active labor, rupture of membranes, other (term and given pitocin augmentation) Other procedures: none complications: other (maternal tacchycardia and leucocytosis that resolved with IV and oral antibiotics) Discharge diagnosis: IUP at term delivered baby: female Hospital course: pt given IV antibiotics then oral with resolution of maternal tacchycardia and leucocytosis and afebrile for the duration of hospitalization Condition at discharge: Good Disposition: DC-01 TO HOME OR SELFCARE Plan - Discharge Medications Prescriptions: Amoxicillin/Potassium Clav [Augmentin 875-125 Tablet] 1 each PO BID 5 Days #10 tablet Ibuprofen [Motrin] 800 mg PO Q8HR PRN 21 Days #40 tablet PRN Reason: Pain, Moderate (4-6) - Provider Discharge Summary Additional instructions: [] Smoking cessation referral if applicable(refer to patient education folder for contact #) [] Refer to [facility]'s [facility] Booklet Call your doctor immediately for: * Fever > 100.5 * Heavy vaginal bleeding ( >1 pad per hour) * Severe persistent headache * Shortness of breath * Reddened, hot, painful area to leg or breast * Drainage or odor from incision. * Keep incision clean and dry at all times and follow doctor's instructions regarding bathing/showering - Follow up plan Follow up: ILEANA VELEZ MD [Primary Care Provider] - 7 Days
[2020-10-30] MEDS: DOCUSATE SODIUM 100 MG CAP PO SCH (09:20)
[2020-10-30 13:21] VITALS: BP 107/63
== END 2020-10-30 13:40 | disposition home or self-care (01) | DRG 775 ==
LOC: TRG 17:04 → APU 18:54 → TRG 18:57 → LD 18:59 → OB 10-28 22:33
PROC: 10E0XZZ Delivery of Products of Conception, External Approach (ICD-10-PCS; principal; 2020-10-28)
PROC: 3E0R3BZ Introduction of Anesthetic Agent into Spinal Canal, Percutaneous Approach (ICD-10-PCS; 2020-10-28)
PROC: 00HU33Z Insertion of Infusion Device into Spinal Canal, Percutaneous Approach (ICD-10-PCS; 2020-10-28)
DX: O90.81 Anemia of the puerperium (principal); O99.12 Other diseases of the blood and blood-forming organs and certain disorders involving the immune mechanism complicating childbirth; Z20.822 Contact with and (suspected) exposure to COVID-19; D64.9 Anemia, unspecified; D72.829 Elevated white blood cell count, unspecified; Z37.0 Single live birth; Z88.8 Allergy status to other drugs, medicaments and biological substances; Z83.3 Family history of diabetes mellitus; Z3A.38 38 weeks gestation of pregnancy
CPT/HCPCS: 36415; 59025; 80053; 82565; 83615; 84450; 84460; 84550; 85007; 85014; 85018; 85025; 85027; 86592; 86850; 86900; 86901; 87040; 87086; G0378; J0290; J0595; J1100; J1200; J1580; J1885; J2370; J2405; J2590; J3010; J3490; J7040; J7120; Q0162; U0003

== ENCOUNTER 2021-06-04 11:06 | Emergency (ER) | payer OTHER ==
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
[2021-06-04 13:15] LABS: HCG Qualitative,Urine Negative (Negative)
--- NOTE | 2021-06-04 15:53 | Cat Scan Report ---
CT FACIAL 06/04/2021 HISTORY: Trauma. FINDINGS: CT images of the facial bones were obtained. Images are evaluated in the axial, coronal, an d sagittal planes. There is no evidence of acute osseous injury. Paranasal sinuses are clear. There is no evidence of intraorbital abnormality. IMPRESSION: No evidence of acute osseous injury. All CT scans at this location are performed using dose reduction to ALARA by means of automated expos ure control. Signer Name: Raad Jaramillo MD Signed: 06/04/2021 3:48 PM Workstation Name: [id number]
[2021-06-04 16:03] VITALS: BP 124/79
== END 2021-06-04 16:29 | disposition home or self-care (01) ==
LOC: ED 11:06
DX: S09.93XA Unspecified injury of face, initial encounter (principal); T74.11XA Adult physical abuse, confirmed, initial encounter; Y08.89XA Assault by other specified means, initial encounter; Y93.89 Activity, other specified; Y92.89 Other specified places as the place of occurrence of the external cause; Y99.8 Other external cause status
CPT/HCPCS: 70486; 81025; 99284